=== PATIENT | female | born 1995 | race Caucasian/White ===

== ENCOUNTER 2018-07-24 20:21 | Emergency (ER) | payer MEDICAID ==
[2018-07-24] MEDS ORDERED: Lidocaine 1% with EPINEPHrine 1:100,000 20 ML MDV INJECT ONE (20:51)
[2018-07-24] MEDS ORDERED: Bacitracin Oint 1 GM U/D Packet TOP ONE (20:51)
[2018-07-24] MEDS ORDERED: Diphtheria,Pertussis(Acell),Tetanus Vaccine 0.5 ML Syringe IM ONE (20:51)
--- NOTE | 2018-07-24 20:55 | EDM.PDOC ---
ED HPI GENERAL MEDICAL PROBLEM - General Chief Complaint: Bite:Animal, Insect Stated Complaint: DOG BITE Time Seen by Provider: 07/24/18 20:46 - History of Present Illness INITIAL COMMENTS - FREE TEXT/NARRATIVE: HISTORY AND PHYSICAL: History of present illness: The patient is a healthy 23-year-old female who presents with 2 punctures/ lacerations to her left forearm that occurred when her dog and a visiting dog or fighting. The patient says the dogs are up-to-date on immunizations and she is unsure of her last tetanus shot. Patient denies any other injuries and has no neurosensory changes in her distal forearm or hand. She is here mostly because the wounds are slightly gaping and one of them keeps oozing. She was in her usual state of good health prior to these events. The patient denies Review of systems: As per history of present illness and below otherwise all systems reviewed and negative. Past medical history: As per history of present illness and as reviewed below otherwise noncontributory. Surgical history: As per history of present illness and as reviewed below otherwise noncontributory. Social history: No reported history of drug or alcohol abuse. Family history: As per history of present illness and as reviewed below otherwise noncontributory. Physical exam: General: Well-developed well-nourished female who is nontoxic and vital signs were noted by me HEENT: Atraumatic, normocephalic, negative for conjunctival pallor or scleral icterus, mucous membranes moist, throat clear, neck supple, nontender, trachea midline. Lungs: Clear to auscultation, breath sounds equal bilaterally, chest nontender. Heart: S1S2, regular rate and rhythm no overt murmurs Abdomen: Soft, nondistended, nontender. NABS Pelvis: Deferred Genitourinary: Deferred. Rectal: Deferred. Extremities: Atraumatic, full range of motion of all extremities with the exception of the left forearm where there are 2 lacerations each measuring 1 cm. One is on the volar forearm and the other is on the lateral aspect and subcutaneous fat is seen. There is some oozing from the wounds which can be easily stopped with pressure. Distally there are no wounds and motor and sensory is intact as is flexion and extension at the wrist and all digits. Kirsten is soft and there is no surrounding swelling or erythema Neurovascular unremarkable. Neuro: Awake, alert, oriented. Cranial nerves II through XII unremarkable. Cerebellum unremarkable. Motor and sensory unremarkable throughout. Exam nonfocal. Diagnostics: None Therapeutics: Cleansing local wound care Tdap, lidocaine with epinephrine for suturing Procedure note: Wounds were cleansed by nursing and 1% lidocaine with epinephrine was infused in a local fashion. The wound was explored and no foreign bodies were appreciated. The skin edges were closed with simple interrupted sutures. On the one that had some oozing more laterally #2 sutures of 4-0 nylon were placed and the laceration on the volar surface of the forearm had #1 suture of 4-0 nylon placed. There were no complications and the patient tolerated procedure well. Bacitracin and dressing was applied. The procedure was performed by Luli MILLER Patient and were told that these are only reapproximated loosely as there may be a potential for infection. Patient will be given Augmentin Impression: Puncture lacerations to left forearm status post dog bite Definitive disposition and diagnosis as appropriate pending reevaluation and review of above. - Related Data Allergies Allergy/AdvReac Type Severity Reaction Status Date / Time No Known Allergies Allergy Verified 07/24/18 20:47 Home Meds: Home Meds . [No Known Home Meds] 07/24/18 [History] ED ROS GENERAL - Review of Systems Review Of Systems: ROS reveals no pertinent complaints other than HPI. ED EXAM, ANIMAL BITE - Physical Exam Exam: See Below (See dictation) Course - Vital Signs Last Recorded V/S: Last Vital Signs Temp 36.5 C 07/24/18 20:30 Pulse 105 H 07/24/18 20:30 Resp 18 07/24/18 20:30 BP 133/78 07/24/18 20:30 Pulse Ox 99 07/24/18 20:30 - Orders/Labs/Meds Orders: Active Orders 24 hr Category Date Time Status Communication Order [RC] STAT Care 07/24/18 20:51 Active Vaccines to be Administered [RC] PER UNIT ROUTINE Care 07/24/18 20:51 Active Meds: Medications Discontinued Medications Generic Name Dose Route Start Last Admin Trade Name Freq PRN Reason Stop Dose Admin Bacitracin 1 dose 07/24/18 20:51 07/24/18 20:57 Bacitracin Oint 1 Gm TOP 07/24/18 20:52 1 dose ONETIME ONE Administration Diphtheria/Tetanus/Acell Pertussis 0.5 ml 07/24/18 20:51 07/24/18 20:57 Adacel IM 07/24/18 20:52 0.5 ml .ONCE ONE Administration Lidocaine/Epinephrine 20 ml 07/24/18 20:51 07/24/18 20:57 Xylocaine 1% With Epinephrine 1:100,000 INJECT 07/24/18 20:52 20 ml ONETIME ONE Administration Departure - Departure Time of Disposition: 21:39 Disposition: Home, Self-Care 01 Condition: Good Clinical Impression: Dog bite of forearm Qualifiers: Encounter type: initial encounter Laterality: left Qualified Code(s): S51.852A - Open bite of left forearm, initial encounter Puncture wound of forearm Qualifiers: Encounter type: initial encounter Laterality: left Qualified Code(s): S51.832A - Puncture wound without foreign body of left forearm, initial encounter - Discharge Information Instructions: Laceration Care, Adult, Animal Bite, Adult Referrals: PCP,None [Primary Care Provider] - Forms: ED Department Discharge Additional Instructions: The following information is given to patients seen in the emergency department who are being discharged to home. This information is to outline your options for follow-up care. We provide all patients seen in our emergency department with a follow-up referral. The need for follow-up, as well as the timing and circumstances, are variable depending upon the specifics of your emergency department visit. If you don't have a primary care physician on staff, we will provide you with a referral. We always advise you to contact your personal physician following an emergency department visit to inform them of the circumstance of the visit and for follow-up with them and/or the need for any referrals to a consulting specialist. The emergency department will also refer you to a specialist when appropriate. This referral assures that you have the opportunity for followup care with a specialist. All of these measure are taken in an effort to provide you with optimal care, which includes your followup. Under all circumstances we always encourage you to contact your private physician who remains a resource for coordinating your care. When calling for followup care, please make the office aware that this follow-up is from your recent emergency room visit. If for any reason you are refused follow-up, please contact the [facility] emergency department at and ask to speak to the emergency department charge nurse. ESTRELLA [facility] Primary care- Internal Medicine and Family [address] [address] Keep wounds clean and dry for the next 24 hours then remove dressing and cleanse with mild soap and water and pat dry. Apply bacitracin or Neosporin. Sutures need to be removed in 7-10 days either here in the ER or with your provider in the clinic. Please take antibiotics as prescribed to prevent infection. Return to ER as needed as discussed - My Orders Last 24 Hours: My Active Orders 07/24/18 20:51 Communication Order [RC] STAT Vaccines to be Administered [RC] PER UNIT ROUTINE - Assessment/Plan Last 24 Hours: My Active Orders 07/24/18 20:51 Communication Order [RC] STAT Vaccines to be Administered [RC] PER UNIT ROUTINE
== END 2018-07-24 21:45 | disposition home or self-care (01) ==
LOC: MW.ED 20:21
DX: S51.852A Open bite of left forearm, initial encounter (principal); Z23 Encounter for immunization; W54.0XXA Bitten by dog, initial encounter
CPT/HCPCS: 90471; 90715; 99283